=== PATIENT | male | born 1960 | race Caucasian/White ===

== ENCOUNTER 2016-11-07 13:59 | Emergency (ER) | payer OTHER ==
--- NOTE | ~2016-11-07 | EKG ---
PATIENT: DARBY WASHBURN UNIT #: [id number] Ventricular Rate: 99 BPM Atrial Rate: 99 BPM P-R Interval: 160 ms QRS Duration: 92 ms Q-T Interval: 346 ms QTC Calculation(Bezet): 444 ms P [place]: 67 degrees Calculated R [place]: 62 degrees Calculated T [place]: 51 degrees Diagnosis Line: Normal sinus rhythm Diagnosis Line: Left atrial enlargement Diagnosis Line: Otherwise normal ECG Diagnosis Line: No previous ECGs available Diagnosis Line: Confirmed by LAUREL PRATT MD ([id number]) on 11/12/2016 Diagnosis Line: 11:10:17 PM INTERPRETING MD: SANTA CARLISLE
[~2016-11-07 13:59] MED LIST: AMOXICILLIN500 M1 PO; ANTIVERT PO; ERYTHROMYCIN O3.5 GM OD; FLEXERIL; IBUPROFEN; IBUPROFEN800 MG; NO MEDICATIONS; NORVASC10 MG PO; PRILOSEC20 M1 PO
[2016-11-07 14:37] LABS: BASOPHIL% 0.3 % (0-2.5); EOSINOPHIL# 0.1 X10e3 (0-0.7); EOSINOPHIL% 0.4 % (0.0-7.0); HEMATOCRIT 50.5 % (38.0-50.0); HEMOGLOBIN 16.9 gm/dL (13.0-16.0); LYMPHOCYTE# 1.9 X10e3 (1.0-3.5); LYMPHOCYTE% 14.2 % (17.0-45.0); MEAN CELL VOLUME 95.2 FL (83-96); MEAN CORPUSCULAR HEMOGLOBIN 31.8 PG (28-34); MEAN CORPUSCULAR HGB CONC 33.4 g/dL (30-36); MEAN PLATELET VOLUME 9.4 FL (6.5-11.5); MONOCYTE# 1.1 X10e3 (0-1.0); MONOCYTE% 8.1 % (3.0-12.0); NEUTROPHIL# 10.5 X10e3 (1.5-7.1); PLATELET COUNT 120 X10e3 (140-420); RED CELL DISTRIBUTION WIDTH 13.9 % (11.0-15.5); WHITE BLOOD COUNT 13.7 X10e3 (4.0-10.5)
[2016-11-07 14:40] LABS: DIFF IND NO
[2016-11-07 14:48] LABS: INR 0.9; PROTHROMBIN TIME (PATIENT) 10.6 SECONDS (9.5-12.4)
[2016-11-07 16:10] LABS: ALKALINE PHOSPHATASE 76 U/L (32-92); ALT (SGPT) 61 U/L (10-40); AST (SGOT) 170 U/L (10-42); BILIRUBIN, DIRECT 0.2 mg/dL (0.0-0.2); BILIRUBIN,INDIRECT 0.9 mg/dL (0.0-0.9); BILIRUBIN,TOTAL 1.1 mg/dL (0.2-2.0); BLOOD UREA NITROGEN 14 mg/dL (9-23); CALCIUM SERUM 8.4 mg/dL (8.4-10.2); CARBON DIOXIDE 24 mmol/L (22-31); CHLORIDE 96 mmol/L (100-111); CPK (CREATINE PHOSPHOKINASE) 4567 IU/L (36-174); CREATININE SERUM 0.8 mg/dL (0.6-1.4); GLOM FILT RATE Estimated ABOVE60 mL/min (>60); GLUCOSE FASTING 98 mg/dL (70-110); POTASSIUM 3.2 mmol/L (3.5-5.1); PROTEIN TOTAL SERUM 7.3 g/dL (6.0-8.3); SODIUM 133 mmol/L (135-145)
== END 2016-11-07 17:15 ==
LOC: SED 13:59
PROVIDERS: Emergency Medicine
DX: I74.3 Embolism and thrombosis of arteries of the lower extremities (principal); I10 Essential (primary) hypertension; F17.210 Nicotine dependence, cigarettes, uncomplicated
CPT/HCPCS: 80048; 80076; 82550; 85025; 85610; 93005; 99285; J1170; J1644

== ENCOUNTER 2016-12-29 13:36 | Emergency (ER) | payer OTHER ==
--- NOTE | ~2016-12-29 | CT16 ---
[facility] A Service of [place] [facility] RADIOLOGY TEXT RESULTS PATIENT: DARBY WASHBURN LOCATION: SED : 62 UNIT #: [id number] AGE: [address]: Shalom Iqbal DO SEX: M ORDER DR: [id number] [place] [id number] MR#: [id number] Acc #: [id number] NAME: DARBY WASHBURN : 1960 SEX: M STUDY DATE/TIME: 12/29/2016 15:22 UNIT: SED ROOM: STUDY DESCRIPTION: CT Angio Chest for PE Attending Physician: (Res) Shalom Iqbal Ordering Physician: (Res) Shalom Iqbal Primary Care Physician: No Primary Care Physician MEDICAL IMAGING REPORT This report is preliminary unless electronic signature is present. EXAM CT angiogram chest, PE protocol. HISTORY Chest pressure since last evening, right leg pain with right leg surgery 10/2016 for blood clot removal. Evaluate for possible pulmonary embolism. COMMENT CT of the chest performed in the axial plane during the intravenous administration of 100 mL of Isovue-370. This was followed by 3-D coronal and MIP reconstructed imaging for the purpose of CT pulmonary angiography. TECHNIQUE This CT exam was performed with one or more of the following radiation dose reduction techniques: automatic exposure control, adjustment of mA and/or kV according to patient size, and iterative reconstruction. COMPARISON There is an earlier chest x-ray 11/24/2016, and a previous CTA chest from 11/13/2016. FINDINGS Redemonstrated is patient's aortic stent graft. This appears to have been placed in the interval since the chest CT 11/13/2016. It is not present on that study but it is present on the chest x-ray 11/24/2016. Please correlate with the patient's clinical course. There is no evidence for pulmonary embolism. The arch is not well opacified, but there is no obvious dissection. There is no pericardial or pleural effusion. No axillary lymphadenopathy. Interval decrease in size in the right hilar lymph nodes favoring improving infectious or inflammatory disease. There is no pneumothorax. There are again emphysematous changes in the lungs. The indistinct noncalcified somewhat nodular densities in the left upper lobe are smaller. Also, favoring some improving infectious or STS. [facility] A Service of [place] [facility] RADIOLOGY TEXT RESULTS PATIENT: DARBY WASHBURN LOCATION: [facility] : 62 UNIT #: [id number] AGE: [address]: Shalom Iqbal DO SEX: M ORDER DR: inflammatory disease. Please correlate further clinically. Also improvement in dependent atelectasis since prior. Again, there is a mass lesion arising from the left upper pole kidney posteriorly medially about 1.5 cm in dimension. It is enlarging overall and as noted previously does not appear to be a simple cyst and it should still be further characterized with a CT abdomen and pelvis using a renal mass protocol since neoplastic disease in the current differential. Small nonobstructing left upper pole renal calculus again seen. Probably not changed. There is also a partially calcified lesion in the left kidney more inferiorly which would also be best further characterized with renal mass protocol CT scan. IMPRESSION 1. Interval placement of an aortic stent graft. 2. No evidence for pulmonary embolism. 3. Interval improvement in previously noted right hilar lymphadenopathy. There are again emphysematous changes, and there are again small somewhat indistinct noncalcified soft tissue nodular densities best appreciated in the upper lungs. These are probably improving on comparison to 11/13/2016, and findings together would favor an improving infectious or inflammatory process. I would recommend a follow-up study in about 6 months to reassess. 4. Redemonstrated is a mass lesion from the posterior superior medial left kidney which does not have Hounsfield unit characteristics of a simple cyst. It is concerning for a solid mass lesion and it is gradually enlarging. Again, it should be evaluated with a renal mass protocol CT scan with and without contrast since renal cell carcinoma is in the differential. STAT * RESULT Dictated by... Kisha Montgomery M.D. THIS IS AN ELECTRONICALLY VERIFIED REPORT Kisha Montgomery M.D. at 12/29/2016 7:12 PM Marsha TD: 12/29/2016 15:53 JOB #: [id number] MEDICAL IMAGING REPORT Page 1 of 1
--- NOTE | ~2016-12-29 | EKG ---
PATIENT: DARBY WASHBURN UNIT #: [id number] Ventricular Rate: 84 BPM Atrial Rate: 84 BPM P-R Interval: 172 ms QRS Duration: 82 ms Q-T Interval: 350 ms QTC Calculation(Bezet): 413 ms P [place]: 85 degrees Calculated R [place]: 73 degrees Calculated T [place]: 68 degrees Diagnosis Line: Normal sinus rhythm Diagnosis Line: Normal ECG Diagnosis Line: When compared with ECG of 07-NOV-2016 14:19, Diagnosis Line: No significant change was found Diagnosis Line: Confirmed by RASHAWN VELASQUEZ MD ([id number]) on Diagnosis Line: 01/01/2017 1:26:03 PM INTERPRETING MD: EVA CARLISLE
[2016-12-29] MEDS ORDERED: HYDROCODON-ACE1 EAC9 PO (14:31)
[2016-12-29] MEDS ORDERED: LITE COAT ASPI325 M1 PO (14:32)
[2016-12-29] MEDS ORDERED: DOCUSATE SODIU100 MG (14:32)
[2016-12-29] MEDS ORDERED: NEURONTIN (14:32)
[2016-12-29] MEDS ORDERED: LIPITOR (14:32)
[2016-12-29] MEDS ORDERED: TOPROL XL50 MG (14:33)
[2016-12-29] MEDS ORDERED: WARFARIN SODIUM2 M1 PO (14:33)
[2016-12-29] MEDS ORDERED: SENNA8.6 M1 (14:33)
[2016-12-29 14:40] LABS: BASOPHIL# 0.1 X10e3 (0-0.3); BASOPHIL% 0.8 % (0-2.5); EOSINOPHIL# 0.1 X10e3 (0-0.7); EOSINOPHIL% 0.8 % (0.0-7.0); HEMATOCRIT 38.8 % (38.0-50.0); HEMOGLOBIN 13.1 gm/dL (13.0-16.0); LYMPHOCYTE# 4.2 X10e3 (1.0-3.5); LYMPHOCYTE% 41.5 % (17.0-45.0); MEAN CELL VOLUME 96.7 FL (83-96); MEAN CORPUSCULAR HEMOGLOBIN 32.7 PG (28-34); MEAN CORPUSCULAR HGB CONC 33.8 g/dL (30-36); MEAN PLATELET VOLUME 8.9 FL (6.5-11.5); MONOCYTE# 0.5 X10e3 (0-1.0); MONOCYTE% 5.1 % (3.0-12.0); NEUTROPHIL# 5.3 X10e3 (1.5-7.1); NEUTROPHIL% 51.8 % (40-75); PLATELET COUNT 265 X10e3 (140-420); RED BLOOD COUNT 4.01 X10e (3.90-5.60); RED CELL DISTRIBUTION WIDTH 15.4 % (11.0-15.5); WHITE BLOOD COUNT 10.2 X10e3 (4.0-10.5)
[2016-12-29 14:44] LABS: DIFF IND NO
[2016-12-29 14:45] LABS: POC - CKMB <1.0 ng/mL (0.0-7.9); POC - TROPONIN <0.05 ng/mL (<=0.05)
[2016-12-29 15:02] LABS: INR 2.1; PROTHROMBIN TIME (PATIENT) 23.5 SECONDS (9.5-12.4)
[2016-12-29 15:07] LABS: ALBUMIN SERUM 4.1 g/dL (3.5-5.0); ALKALINE PHOSPHATASE 61 U/L (32-92); ALT (SGPT) 24 U/L (10-40); AST (SGOT) 19 U/L (10-42); BILIRUBIN,TOTAL 0.3 mg/dL (0.2-2.0); BLOOD UREA NITROGEN 20 mg/dL (9-23); BUN/CREATININE RATIO 18.18; CALCIUM SERUM 8.4 mg/dL (8.4-10.2); CARBON DIOXIDE 25 mmol/L (22-31); CHLORIDE 108 mmol/L (100-111); CREATININE SERUM 1.1 mg/dL (0.6-1.4); GLOM FILT RATE Estimated 75.2 mL/min (>60); GLUCOSE FASTING 79 mg/dL (70-110); POTASSIUM 3.3 mmol/L (3.5-5.1); PROTEIN TOTAL SERUM 7.3 g/dL (6.0-8.3); SODIUM 136 mmol/L (135-145)
[2016-12-29 15:09] LABS: PARTIAL THROMBOPLASTIN TIME 32.2 SECONDS (25.6-38.1)
[2016-12-29 15:11] LABS: BILIRUBIN, DIRECT <0.1 mg/dL (0.0-0.2); BILIRUBIN,INDIRECT 0.2 mg/dL (0.0-0.9)
[2016-12-29 16:38] LABS: POC - CKMB 1.1 ng/mL (0.0-7.9); POC - TROPONIN <0.05 ng/mL (<=0.05)
== END 2016-12-29 18:25 ==
LOC: SED 13:36
PROVIDERS: Emergency Medicine
DX: L03.115 Cellulitis of right lower limb (principal); F17.210 Nicotine dependence, cigarettes, uncomplicated
CPT/HCPCS: 36415; 71275; 80048; 80076; 82553; 83605; 83880; 84484; 85025; 85379; 85610; 85730; 87040; 93005; 96374; 99285; J2270; J2543; Q9967